=== PATIENT | male | born 1970 | race Caucasian/White ===

== ENCOUNTER 2017-07-14 14:05 | Emergency (ER) | payer BC ==
[~2017-07-14] VITALS: Ht 177.8 cm; Wt 109.1 kg
[2017-07-14 14:06] VITALS: BP 111/71; PULSE 97; RESP 18; TEMP 98.5; O2SAT 97
[2017-07-14] MEDS ORDERED: SILV1CRE20 TOPICAL (14:32)
[2017-07-14] MEDS ORDERED: MORP1TAB24 PO (14:32)
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
[2017-07-14] MEDS ORDERED: SILVER SULFADIAZINE 1% CR 400 GM JAR TOPICAL ONE (14:45)
[2017-07-14] MEDS ORDERED: oxyCODONE/ACETAMINOPHEN 5 MG/325 MG TAB PO ONE (15:00)
== END 2017-07-14 16:50 | disposition home or self-care (01) ==
LOC: NEPD 14:05
DX: T30.0 Burn of unspecified body region, unspecified degree (principal); X08.8XXD Exposure to other specified smoke, fire and flames, subsequent encounter; Z48.00 Encounter for change or removal of nonsurgical wound dressing
CPT/HCPCS: 99283

== ENCOUNTER 2017-07-16 14:26 | Emergency (ER) | payer BC ==
[~2017-07-16] VITALS: Ht 177.8 cm; Wt 112.0 kg
[~2017-07-16 14:26] MED LIST: MORP1TAB24 PO; SILV1CRE20 TOPICAL
[2017-07-16 14:36] VITALS: BP 124/79; PULSE 90; RESP 20; TEMP 98.5; O2SAT 98
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
[2017-07-16] MEDS ORDERED: SILVER SULFADIAZINE 1% CR 400 GM JAR TOPICAL ONE (15:15)
== END 2017-07-16 16:24 | disposition home or self-care (01) ==
LOC: NEPD 14:26
DX: Z51.89 Encounter for other specified aftercare (principal); T20.30XD Burn of third degree of head, face, and neck, unspecified site, subsequent encounter; T20.31 Burn of third degree of ear [any part, except ear drum]; T21.30XD Burn of third degree of trunk, unspecified site, subsequent encounter; T24.309 Burn of third degree of unspecified site of unspecified lower limb, except ankle and foot; T23.30 Burn of third degree of hand, unspecified site; X08.8XXD Exposure to other specified smoke, fire and flames, subsequent encounter; Z72.0 Tobacco use
CPT/HCPCS: 99283